=== PATIENT | female | born 2000 | race Two or more races ===

== ENCOUNTER 2018-08-11 23:16 | Emergency (ER) | payer OTHER ==
[~2018-08-11] VITALS: Ht 154.9 cm; Wt 44.5 kg
[2018-08-11 23:47] VITALS: BP 115/60
[2018-08-12] MEDS ORDERED: KETOROLAC TROMETH 60MG/2ML VIAL IM ONE (00:30)
[2018-08-12] MEDS ORDERED: IBUPROFEN 800 MG TAB PO ONE (00:45)
== END 2018-08-12 02:37 | disposition home or self-care (01) ==
LOC: ER 23:26
DX: S83.105A Unspecified dislocation of left knee, initial encounter (principal); W10.8XXA Fall (on) (from) other stairs and steps, initial encounter; Y93.01 Activity, walking, marching and hiking; Y92.090 Kitchen in other non-institutional residence as the place of occurrence of the external cause; Y99.8 Other external cause status
CPT/HCPCS: 29505; 73562; J1885

== ENCOUNTER 2024-08-03 22:37 | Emergency (ER) | payer MEDICAID, OTHER ==
[~2024-08-03] VITALS: Ht 152.4 cm; Wt 54.1 kg
[2024-08-03 22:58] VITALS: BP 136/60; PULSE 62; RESP 20; O2SAT 99
[2024-08-03] MEDS: ACETAMINOPHEN 325 MG TAB PO ONE (23:22)
[2024-08-03] MEDS ORDERED: ACET500T58 PO (23:24)
[2024-08-03] MEDS ORDERED: AMOX875T4 PO (23:24)
--- NOTE | 2024-08-03 23:26 | ED.PDOC ---
HPI Comments 24-YEAR-OLD FEMALE PRESENTS TO ER WITH COMPLAINTS OF DOG BITE TO LEFT 2ND FINGER X 40 MINUTES. PATIENT REPORTS THAT HER GEORGIAN SKINNER WHO IS FULLY UP-TO-DATE ON SHOTS BIT HER ON HER LEFT 2ND FINGER 40 MINUTES PRIOR TO ARRIVAL TO ER AND SUSTAINED LACERATION TO LEFT 2ND FINGER AT THAT TIME. SHE REPORTS 8/10 PAIN LOCALIZED TO LACERATION TO LEFT 2ND FINGER. DENIES USE OF MEDICATIONS FOR CURRENT SYMPTOMS AND STATES SHE IS UP-TO-DATE ON HER TETANUS SHOT. DENIES NUMBNESS/TINGLING OR ANY FURTHER SYMPTOMS/COMPLAINTS Chief Complaint: Animal Bite Time Seen by MD: 22:44 Primary Care Provider: LEAH Reviewed Notes: Nurses Notes, Medications, Allergies Allergies: Coded Allergies: Amoxicillin (Verified Allergy, Unknown, 08/03/24) Home Meds Active Scripts Doxycycline (Monohydrate) (Doxycycline) 100 Mg Cap, 100 MG PO BID for 14 Days, #28 CAP 0 Refills Prov:OMI VOGT 08/03/24 Acetaminophen (Acetaminophen) 500 Mg Tab, 500 MG PO Q4HPRN, #30 TAB 0 Refills Prov:OMI VOGT 08/03/24 Discontinued Scripts Amoxicillin & Pot Clavulanate (Amoxicillin/Potassium Cla) 875 Mg Tab, 1 TAB PO BID for 7 Days, #14 TAB 0 Refills Prov:OMI VOGT 08/03/24 Information Source: Patient Mode of Arrival: Ambulatory Complexity: Intermediate Laceration Length (cm): 3 Skin Type: Linear Past Medical History PAST MEDICAL HISTORY: Denies Surgical History: Denies all surgeries DIE GRINDER History: No Pertinent DIE GRINDER History Family History Family History: Unknown Social History Smoker: Non-Smoker Alcohol: Denies ETOH Use Drugs: Denies Drug Use Lives In: Home Constitutional: denies: chills, diaphoresis, fatigue, fever, malaise, sweats, weakness, others EENTM: denies: blurred vision, double vision, ear bleeding, ear discharge, ear drainage, ear pain, ear ringing, eye pain, eye redness, hearing loss, mouth pain, mouth swelling, nasal discharge, nose bleeding, nose congestion, nose pain, photophobia, tearing, throat pain, throat swelling, voice changes, others Respiratory: denies: cough, hemoptysis, orthopnea, SOB at rest, shortness of breath, SOB with excertion, stridor, wheezing, others Cardiovascular: denies: chest pain, dizzy spells, diaphoresis, Dyspnea on exertion, edema, irregular heart beat, left arm pain, lightheadedness, palpitations, PND, syncope, others Gastrointestinal: denies: abdomen distended, abdominal pain, blood streaked bowels, constipated, diarrhea, dysphagia, difficulty swallowing, hematemesis, melena, nausea, poor appetite, poor fluid intake, rectal bleeding, rectal pain, vomiting, others Genitourinary: denies: abnormal vagina bleeding, burning, dyspareunia, dysuria, flank pain, frequency, hematuria, incontinence, pain, , vagina discharge, urgency, others Neurological: denies: dizziness, fainting, headache, left sided numbness, left sided weakness, numbness, paresthesia, pre-existing deficit, right sided numbness, right sided weakness, seizure, speech problems, tingling, tremors, weakness, others Musculoskeletal: reports: others ( STATED IN HPI) Integumetry: reports: others ( STATED IN HPI) Allergic/Immunocompromised: denies: Difficulty Healing, Frequent Infections, Hives, Itching, others Hematologic/Lymphatic: denies: anemia, blood clots, easy bleeding, easy bruising, swollen glands, others Endocrine: denies: excessive hunger, excessive sweating, excessive thirst, excessive urination, flushing, intolerance to cold, intolerance to heat, unexplained weight gain, unexplained weight loss, others Psychiatric: denies: anxiety, bipolar disorder, depression, hopeless, panic disorder, schizophrenia, sleepless, suicidal, others Physical Exam General Appearance: No Apparent Distress HEENT: PERRL/EOMI Neck: Full Range of Motion, Non-Tender, Normal Respiratory: Chest Non-Tender, Lungs Clear, No Accessory Muscle Use, No Respiratory Distress, Normal Breath Sounds Cardiovascular: No Murmur, No Gallop, Regular Rate/Rhythm Breast Exam: Deferred Gastrointestinal: NOT DONE Genitalia: Deferred Pelvic: Deferred Rectal: Deferred Extremities: Normal capillary refill Neurologic: Alert, No Motor Deficits, Normal Affect, Normal Mood, No Sensory Deficits Cerebellar Function: Normal Reflexes: Normal Skin: Dry, Warm Peripheral Pulses: 2+ Radial (R), 2+ Radial (L), 2+ Brachial (R), 2+ Brachial (L) Lymphatic: No Adenopathy Was a procedure done? Was a procedure done?: Yes Sedation Sedation?: No Laceration Repair : Location LEFT 2ND FINGER Length 2 CM Anesthetic: Lidocaine (1%), Without epi, Digital nerve block Laceration Repair Prep: Saline, Betadine, by Irrigation (HEAVILY IRRIGATED WITHOUT ANY SIGNS OF FOREIGN BODY) Laceration Repair Wound Comple: epidermis/dermis repair Laceration Repair: Number of sutures (6 PLACED-LOOSELY APPROXIMATED. PATIENT TOLERATED WELL WITHOUT ANY COMPLICATION), Size (5-0), Nylon, Simple, Non-adherent gauze (AND FINGER SPLINT APPLIED) Informed consent obtained: Yes Risks, benefits, and alternati: Yes Images 1 - 3 CM LACERATION TO LEFT 2ND FINGER NOTED AT DIP JOINT. SLIGHT TTP/SWELLING/ERYTHEMA LOCALIZED TO WOUND EDGES. NO FOREIGN BODY/NAILBED INJURY/FURTHER SKIN CHANGES NOTED. SLIGHT LIMITED ROM ON EXTENSION OF LEFT 2ND FINGER AT DIP JOINT NOTED. PULSES INTACT Differential diagnosis Generic Laceration: Retained Foriegn Body, Neurovascular Injury, Avulsion, Amputation X-Ray, Labs, Meds, VS Vital Signs Date Time Temp Pulse Resp B/P (MAP) Pulse Ox O2 Delivery O2 Flow Rate FiO2 08/03/24 22:58 98.2 62 20 136/60 (85) 99 Current Medications Medications (Trade) Dose Ordered Sig/Elo Route Start Time Stop Time Status Last Admin Acetaminophen (Tylenol Tablet) 650 mg ONCE ONCE PO 08/03/24 23:15 08/03/24 23:17 DC 08/03/24 23:22 Cefazolin Sodium 50 ml @ 100 mls/hr ONCE ONCE IV 08/03/24 23:45 08/04/24 00:14 DC 08/03/24 23:49 Cefazolin Sodium 50 ml @ 100 mls/hr ONCE ONCE IV 08/03/24 23:45 08/04/24 00:14 DC 08/03/24 23:49 PATIENT: SYLVIA KIDD: [id number]: [id number] : 2000 LOC: ER ROOM / BED: / AGE / SEX: 24 / F ADM STATUS: REG ER SERVICE [id number] ORDERING PHYSICIAN: OIM VOGT PROCEDURE(s): LFIN2 - L 2ND FINGER XRAY REASON: LEFT 2ND FINGER PAIN/LACERATION ORDER NUMBER(s): [id number], ACCESSION NUMBER(s): [id number] CLINICAL INDICATION: LEFT 2ND FINGER PAIN/LACERATION TECHNIQUE: XY L 2ND FINGER XRAY Comparison: None FINDINGS/IMPRESSION: : Mildly displaced fracture of the dorsal 2nd distal phalanx with intra-articular extension into the distal interphalangeal joint. Soft tissue swelling and laceration overlies the distal 2nd digit. No radiopaque foreign body. ATED BY: ZI RANGEL MD DICTATED DATE/TIME: 08/04/2499 SIGNED BY: ZI RANGEL MD SIGNED DATE/TIME: 08/04/2499 CC: WAIVER SIGN TYLENOL 650 MG P.O. ORDERED PATIENT NEUROVASCULARLY INTACT HEP-LOCK IV ORDERED ANCEF 2 MG IV ORDERED WOUND CARE/CLEANING DISCUSSED AND ADVISED SPLINT AT DIP JOINT ON LEFT 2ND FINGER APPLIED AND ADVISED ON CONTINUOS HYPEREXTENSION TO THIS REGION FOR 6 WEEKS ADVISED TO FOLLOW UP IN TWO DAYS FOR WOUND CHECK ADVISED TO FOLLOW UP IN 10-14 DAYS FOR REMOVAL OF SUTURES PATIENT PROVIDED COPY OF X-RAY IMAGING REPORT PATIENT PROVIDED INFORMATION WITH REGARDS TO THE [facility] AND ADVISED TO FOLLOW UP IN 1-2 DAYS. ADVISED TO FOLLOW UP WITH PCP 1-2 DAYS PATIENT VERBALIZED UNDERSTANDING AND AGREEABLE WITH CURRENT PLAN OF CARE ADVISED TO RETURN TO ER IMMEDIATELY IF SYMPTOMS WORSEN Images Reviewed?: Images reviewed and evaluated by me Time of 1ST Reevaluation: 23:20 Reevaluation 1ST: N/A Time of 2ND Reevaluation: 00:18 Reevaluation 2ND: Improved Patient Education/Counseling: Diagnosis, Treatment, Prognosis, Need For Follow Up Family Education/Counseling: No Family Present Departure 1 Departure Time of Disposition: 00:20 Impression: Primary Impression: Dog bite of index finger Qualified Codes: S61.258A - Open bite of other finger without damage to nail, initial encounter; W54.0XXA - Bitten by dog, initial encounter Additional Impression: Fracture of finger, left Qualified Codes: S62.661B - Nondisplaced fracture of distal phalanx of left index finger, initial encounter for open fracture Disposition: 01 HOME / SELF CARE / HOMELESS Condition: Stable e-Prescriptions Doxycycline (Monohydrate) (Doxycycline) 100 Mg Cap 100 MG PO BID for 14 Days, #28 CAP 0 Refills Prov: OMI VOGT 08/03/24 Acetaminophen (Acetaminophen) 500 Mg Tab 500 MG PO Q4HPRN, #30 TAB 0 Refills Prov: OMI VOGT 08/03/24 Discharged With: Relative (Mother) Critical Care Note Critical Care Time?: No Stability Stability form required: No Heart Score Heart Score: Heart Score Response (Comments) Value History N/A 0 EKG N/A 0 Age N/A 0 Risk Factors N/A 0 Troponin N/A 0 Total 0 OMI VOGT Aug 03, 2024 23:26
[2024-08-03] MEDS ORDERED: DOXY100C79 PO (23:42)
[2024-08-03] MEDS: ceFAZolin 1GM/50ML 50 ML IV ONE ×2 (23:49)
--- NOTE | 2024-08-04 01:02 | DVH ---
CLINICAL INDICATION: LEFT 2ND FINGER PAIN/LACERATION TECHNIQUE: XY L 2ND FINGER XRAY Comparison: None FINDINGS/IMPRESSION: : Mildly displaced fracture of the dorsal 2nd distal phalanx with intra-articular extension into the di stal interphalangeal joint. Soft tissue swelling and laceration overlies the distal 2nd digit. No radiopaque foreign body.
== END 2024-08-04 01:09 | disposition home or self-care (01) ==
LOC: ER 22:37
DX: S62.631A Displaced fracture of distal phalanx of left index finger, initial encounter for closed fracture (principal); S61.251A Open bite of left index finger without damage to nail, initial encounter; Z88.0 Allergy status to penicillin; W54.0XXA Bitten by dog, initial encounter; Y93.89 Activity, other specified; Y92.89 Other specified places as the place of occurrence of the external cause; Y99.8 Other external cause status
CPT/HCPCS: 12001; 29130; 73140; 96365; 99284; J0690; J2003